=== PATIENT | female | born 1940 | race Caucasian/White ===

== ENCOUNTER 2022-01-11 10:50 | Outpatient (CLI) | payer MEDICARE, SELFPAY ==
[2022-01-11 21:32] LABS: Albumin* 4.8 g/dL (3.3-5.0); Chloride* 101 mmol/L (96-114)
[2022-01-11 21:33] LABS: Potassium* 4.2 mmol/L (3.6-5.1); Sodium* 139 mmol/L (135-149)
[2022-01-11 21:35] LABS: Alkaline Phosphatase* 57 U/L (40-150); Aspartate Amino Transferase* 35 U/L (12-35); Bilirubin Total* 0.7 mg/dL (0.1-1.5); Blood Urea Nitrogen* 15 mg/dL (7-30); Carbon Dioxide* 28 mmol/L (20-32); Creatinine* 0.8 mg/dL (0.5-1.5); Estimated Glomerular Filt Rate 74 ml/min; Total Protein* 7.7 g/dL (6.0-8.3)
[2022-01-11 21:36] LABS: Alanine Aminotransferase* 22 U/L (4-35); Calcium* 9.5 mg/dL (8.4-10.6); Glucose* 100 mg/dL (60-115)
== END 2022-01-11 10:51 | disposition home or self-care (01) ==
PROVIDERS: PCP Physician Assistant Medical; Visit Provider Physician Assistant Medical
DX: Z00.00 Encounter for general adult medical examination without abnormal findings (principal); I10 Essential (primary) hypertension; Z13.6 Encounter for screening for cardiovascular disorders; Z13.1 Encounter for screening for diabetes mellitus; Z13.0 Encounter for screening for diseases of the blood and blood-forming organs and certain disorders involving the immune mechanism
CPT/HCPCS: 80053; 84443

== ENCOUNTER 2023-02-05 10:42 | Outpatient (CLI) | payer MEDICARE, SELFPAY | END 2023-02-05 10:43 | disposition home or self-care (01) | PROVIDERS: PCP Physician Assistant Medical; Visit Provider Physician Assistant Medical | DX: Z00.00 Encounter for general adult medical examination without abnormal findings (principal); E78.5 Hyperlipidemia, unspecified; I10 Essential (primary) hypertension; Z13.0 Encounter for screening for diseases of the blood and blood-forming organs and certain disorders involving the immune mechanism; Z13.29 Encounter for screening for other suspected endocrine disorder | CPT/HCPCS: 80053; 80061; 84443 ==

== ENCOUNTER 2024-02-28 10:13 | Outpatient (CLI) | payer MEDICARE, SELFPAY | END 2024-02-28 10:14 | disposition home or self-care (01) | PROVIDERS: PCP Physician Assistant Medical; Visit Provider Physician Assistant Medical | DX: I10 Essential (primary) hypertension (principal); R82.90 Unspecified abnormal findings in urine; Z13.29 Encounter for screening for other suspected endocrine disorder | CPT/HCPCS: 80053; 84443; 87086 ==

== ENCOUNTER 2024-04-07 08:24 | Outpatient (CLI) | payer MEDICARE, SELFPAY | END 2024-04-07 08:25 | disposition home or self-care (01) | PROVIDERS: PCP Physician Assistant Medical; Visit Provider Physician Assistant Medical | DX: R79.89 Other specified abnormal findings of blood chemistry (principal); I10 Essential (primary) hypertension; R80.9 Proteinuria, unspecified | CPT/HCPCS: 80076; 87086 ==

== ENCOUNTER 2025-03-04 08:23 | Outpatient (CLI) | payer MEDICARE, SELFPAY | END 2025-03-04 08:24 | disposition home or self-care (01) | PROVIDERS: PCP Physician Assistant Medical; Visit Provider Physician Assistant Medical | DX: Z00.00 Encounter for general adult medical examination without abnormal findings (principal); R80.9 Proteinuria, unspecified; I10 Essential (primary) hypertension | CPT/HCPCS: 80053; 84443; 87086 ==